=== PATIENT | female | born 1955 | race Caucasian/White ===

== ENCOUNTER 2024-07-20 11:38 | Inpatient (IN) | payer MEDICARE ==
[~2024-07-20] VITALS: Ht 167.6 cm; Wt 58.5 kg
[2024-07-20] VITALS (38 sets, daily range): BP systolic 88–142; BP diastolic 62–87; PULSE 67–94; RESP 15–21; TEMP 36.5–37.2; O2SAT 96–100
[2024-07-20] MEDS ORDERED: NALOXONE HCL 0.4MG/ML 1ML VIAL ONE (11:40)
[2024-07-20] MEDS ORDERED: ETOMIDATE 2MG/ML 10ML VIAL IV ONE ×2 (12:00→13:48)
[2024-07-20] MEDS ORDERED: ROCURONIUM BROMIDE 10MG/ML VIAL 5ML IV ONE (12:00)
[2024-07-20 12:26] LABS: CHLORIDE 106 mEq/L (98-107); POTASSIUM 4.3 mEq/L (3.5-5.1); SODIUM 142 mEq/L (136-145)
[2024-07-20 12:27] LABS: CARBON DIOXIDE 24 mEq/L (21-32)
[2024-07-20 12:32] LABS: CREATININE 0.4 mg/dL (0.6-1.0); GLUCOSE 109 mg/dL (70-105); UREA NITROGEN BLOOD 17 mg/dL (9-23)
[2024-07-20 12:34] LABS: ACETAMINOPHEN < 2 ug/mL (10-30)
[2024-07-20] MEDS: SODIUM CHLORIDE 0.9% 1,000 ML IV ONE (12:45)
[2024-07-20] MEDS: SODIUM CHLORIDE 0.9% (SEPSIS BOLUS) IV ONE (12:45)
[2024-07-20] MEDS: PIPERACILLIN/TAZO 3.375G/50ML 50 ML IV ONE (12:45)
[2024-07-20 12:51] LABS: TROPONIN I HIGH SENSITIVITY < 4 ng/L (3.0-34)
[2024-07-20 12:54] LABS: ETHANOL BLOOD 603 mg/dL (<10)
[2024-07-20] MEDS: PROPOFOL 10MG/ML 100ML 100 ML IV ONE (12:57)
[2024-07-20] MEDS: NALOXONE HCL 0.4MG/ML 1ML VIAL IV PRN (13:16)
[2024-07-20 13:21] LABS: BG BASE EXCESS -4.2 mmol/L (-2.0-3.0); BG CARBOXYHEMOGLOBIN 1.3 % (0.5-1.5); BG DEOXYHEMOGLOBIN 0.2 % (0.0-5.0); BG FRACTION INSPIRED OXYGEN 100; BG HCO3 ACT 21.1 mmol/L (21.0-28.0); BG METHEMOGLOBIN 0.3 % (0.5-1.5); BG OXYGEN SATURATION 99.8 % (94.0-98.0); BG OXYHEMOGLOBIN 98.2 % (94.0-98.0); BG PCO2 39.5 mmHg (32.0-45.0); BG PH 7.346 (7.350-7.450); BG PO2 306.2 mmHg (83.0-108.0); BG SAMPLE SITE RIGHT BRACHIAL; BG TOTAL HEMOGLOBIN 12.3 g/dL (12.0-16.0); BG VENT MODE VENT - AC
[2024-07-20] MEDS: NOREPINEPHRINE 8MG/250ML PMX 250 ML IV ONE (13:27)
[2024-07-20] MEDS: VANCOMYCIN 1G PREMIX 200 ML IV ONE (13:44)
[2024-07-20 14:05] LABS: BASOPHILS % 0.3 % (0.0-2.0); DIFFERENTIAL COMMENT 0; HEMATOCRIT. 34.7 % (36.0-48.0); HEMOGLOBIN. 11.6 g/dL (12.0-16.0); LYMPHOCYTES % 18.9 % (20.0-50.0); MEAN CORPUSCULAR HGB CONC 33.3 g/dL (31.0-37.0); MEAN CORPUSCULAR VOLUME 105.2 fL (81.0-99.0); MONOCYTES % 4.9 % (2.0-8.0); NEUTROPHILS % 74.9 % (40.0-76.0); PLATELET 187 x1000/uL (130-400); RED CELL DISTRIBUTION WIDTH 14.9 % (11.6-14.6); WHITE BLOOD COUNT 8.3 x1000/uL (4.5-11.0)
[2024-07-20 14:15] LABS: PROTHROMBIN TIME 10.8 sec (9.6-11.0)
[2024-07-20 14:41] LABS: LACTIC ACID 2.5 mmol/L (0.4-2.0)
[2024-07-20] MEDS ORDERED: MORPHINE SULFATE 2 MG/ML INJ (NOT FOR IM USE) IV PRN (14:45)
[2024-07-20] MEDS ORDERED: MAGNESIUM/ALUMINUM HYDROXIDE/SIMETHICONE 30ML UDC PO PRN (14:45)
[2024-07-20] MEDS ORDERED: CLONIDINE 0.1MG TABLET PO PRN (14:45)
[2024-07-20] MEDS ORDERED: NOREPINEPHRINE 8MG/250ML PMX 250 ML IV PRN (14:45)
[2024-07-20] MEDS ORDERED: NA PHOS,M-B/NA PHOS,DI-BA ENEMA 118ML PR PRN (14:45)
[2024-07-20] MEDS ORDERED: IPRATROPIUM/ALBUTEROL 0.5-3(2.5)MG/3ML NEB HHN PRN (14:45)
[2024-07-20] MEDS ORDERED: GUAIFENESIN 200MG/10ML SUGAR FREE UDC PO PRN (14:45)
[2024-07-20] MEDS ORDERED: DEXTROSE 50% WATER 50ML SYRINGE IV PRN (14:45)
[2024-07-20] MEDS ORDERED: DOCUSATE SODIUM 100MG CAPSULE PO PRN (14:45)
[2024-07-20] MEDS: BLOOD SUGAR DIAGNOSTIC STRIP TEST SCH (15:00)
[2024-07-20] MEDS ORDERED: MVI, ADULT NO.1 10 ML, FOLIC ACID 1 MG, THIAMINE HCL 100 MG in SODIUM CHLORIDE 0.9% 1,0... IV NR (15:00)
[2024-07-20] MEDS: INSULIN LISPRO 100 UNITS/ML SUBCUT SCH (16:00)
[2024-07-20] MEDS: NOREPINEPHRINE 8MG/250ML PMX 250 ML IV PRN (17:06)
[2024-07-20 17:10] LABS: CLARITY URINE CLEAR (CLEAR); COLOR URINE YELLOW (YELLOW); GLUCOSE URINE NEGATIVE (NEGATIVE); KETONES URINE NEGATIVE (NEGATIVE); LEUKOCYTE ESTERASE URINE NEGATIVE (NEGATIVE); NITRITE URINE NEGATIVE (NEGATIVE); OCCULT BLOOD URINE NEGATIVE (NEGATIVE); PH URINE 5.5 (4.5-8.0); PROTEIN URINE NEGATIVE (NEGATIVE); SPECIFIC GRAVITY URINE 1.007 (1.005-1.030); UROBILINOGEN URINE 0.2 E.U./dL (0.2-1.0)
[2024-07-20 17:19] LABS: *AMPHETAMINES SCREEN URINE NEGATIVE (NEGATIVE); *BENZODIAZEPINES SCREEN URINE PRESUMPTIVE POSITIVE (NEGATIVE)
[2024-07-20 17:20] LABS: *BARBITURATES SCREEN URINE NEGATIVE (NEGATIVE); *COCAINE SCREEN URINE NEGATIVE (NEGATIVE); CANNABINOID URINE SCREEN NEGATIVE (NEGATIVE); ECSTASY MDMA SCREEN URINE CONF.TEST INDICATED (NEGATIVE); METHADONE URINE SCREEN NEGATIVE (NEGATIVE); OPIATES URINE SCREEN NEGATIVE (NEGATIVE); PHENCYCLIDINE URINE SCREEN NEGATIVE (NEGATIVE)
[2024-07-20 17:44] LABS: IRON 64 ug/dL (50-170)
[2024-07-20 17:45] LABS: TRIGLYCERIDE 246 mg/dL (0-150); TROPONIN I HIGH SENSITIVITY 4 ng/L (3.0-34)
[2024-07-20 17:46] LABS: LDL CHOLESTEROL 47 mg/dL (5-100)
[2024-07-20 17:47] LABS: ALBUMIN 3.5 g/dL (3.2-4.8); CHOLESTEROL 189 mg/dL (<200); HDL CHOLESTEROL 110 mg/dL (>65); PHOSPHORUS 3.3 mg/dL (2.5-4.9); TOTAL IRON BINDING CAPACITY 280 ug/dl (250-425)
[2024-07-20 17:49] LABS: T4 FREE 0.91 ng/dL (0.89-1.76); THYROID STIMULATING HORMONE 1.21 uIU/mL (0.55-4.78)
[2024-07-20 17:58] LABS: FERRITIN 61 ng/mL (10-291); FOLIC ACID (FOLATE) SERUM 11.58 ng/mL (>5.38)
[2024-07-20 17:59] LABS: VITAMIN B12 SERUM 399 pg/mL (211-911)
[2024-07-20] MEDS: DEXT 5%/0.9% NACL 1,000 ML IV SCH (18:00)
[2024-07-20] MEDS: FOLIC ACID 1 MG, THIAMINE HCL 100 MG, MVI, ADULT NO.1 10 ML in DEXTROSE 5% WATER 1,000 ML IV SCH (18:25)
[2024-07-20] MEDS: MAGNESIUM 2 G PREMIX 50 ML IV NR (19:53)
[2024-07-20] MEDS: PANTOPRAZOLE SODIUM 40 MG/VIAL IV SCH (22:46)
[2024-07-21] VITALS (100 sets, daily range): BP systolic 89–173; BP diastolic 56–115; PULSE 48–98; RESP 14–28; TEMP 36.6–38; O2SAT 95–100
[2024-07-21] MEDS ORDERED: DEXT 5%/0.9% NACL 1,000 ML IV SCH (01:00)
[2024-07-21] MEDS: LORAZEPAM 2MG/ML UD SYRINGE IV NR (01:47)
[2024-07-21] MEDS: DEXMEDETOMIDINE 400 MCG/100 ML 100 ML IV PRN (01:48)
[2024-07-21] MEDS: PROPOFOL 10MG/ML 100ML 100 ML IV PRN ×2 (01:49→18:53)
[2024-07-21 05:36] LABS: BASOPHILS % 0.3 % (0.0-2.0); DIFFERENTIAL COMMENT 0; EOSINOPHILS % 0.4 % (0.0-5.0); HEMATOCRIT. 35.4 % (36.0-48.0); HEMOGLOBIN. 11.8 g/dL (12.0-16.0); LYMPHOCYTES % 17.7 % (20.0-50.0); MEAN CORPUSCULAR HEMOGLOBIN 34.7 pg (28.0-32.0); MEAN CORPUSCULAR HGB CONC 33.4 g/dL (31.0-37.0); MEAN CORPUSCULAR VOLUME 103.9 fL (81.0-99.0); MEAN PLATELET VOLUME 7.8 fl (7.4-10.4); MONOCYTES % 5.2 % (2.0-8.0); NEUTROPHILS % 76.4 % (40.0-76.0); PLATELET 237 x1000/uL (130-400); RED CELL DISTRIBUTION WIDTH 15.6 % (11.6-14.6); WHITE BLOOD COUNT 9.5 x1000/uL (4.5-11.0)
[2024-07-21 06:08] LABS: CHLORIDE 114 mEq/L (98-107); POTASSIUM 3.4 mEq/L (3.5-5.1); SODIUM 147 mEq/L (136-145)
[2024-07-21 06:09] LABS: CALCIUM 7.3 mg/dL (8.7-10.4); CARBON DIOXIDE 22 mEq/L (21-32)
[2024-07-21 06:14] LABS: CREATININE 0.4 mg/dL (0.6-1.0); GLUCOSE 116 mg/dL (70-105); UREA NITROGEN BLOOD 14 mg/dL (9-23)
[2024-07-21 06:15] LABS: ALBUMIN 3.3 g/dL (3.2-4.8)
[2024-07-21] MEDS ORDERED: NALOXONE HCL 0.4MG/ML VIAL IV PRN (06:15)
[2024-07-21 06:16] LABS: ALANINE AMINOTRANSFERASE 45 IU/L (10-49); ASPARTATE AMINOTRANSFERASE 59 IU/L (<34); BILIRUBIN TOTAL 0.2 mg/dL (0.1-1.0); CREATINE KINASE 85 IU/L (34-145); PHOSPHORUS 2.6 mg/dL (2.5-4.9); PROTEIN TOTAL 5.2 g/dL (6.0-8.3)
[2024-07-21 06:28] LABS: TROPONIN I HIGH SENSITIVITY < 4 ng/L (3.0-34)
[2024-07-21] MEDS: KCL 20MEQ/100ML PREMIX 100 ML IV NR ×2 (08:27→17:30)
[2024-07-21] MEDS: ENOXAPARIN 40MG/0.4ML SYR SUBCUT SCH (08:28)
[2024-07-21 09:05] LABS: BG BASE EXCESS -6.7 mmol/L (-2.0-3.0); BG CARBOXYHEMOGLOBIN 0.4 % (0.5-1.5); BG FRACTION INSPIRED OXYGEN 35; BG METHEMOGLOBIN 0.3 % (0.5-1.5); BG OXYHEMOGLOBIN 97.3 % (94.0-98.0); BG PCO2 33.4 mmHg (32.0-45.0); BG PH 7.349 (7.350-7.450); BG PO2 108.7 mmHg (83.0-108.0); BG SAMPLE SITE RIGHT RADIAL; BG TOTAL HEMOGLOBIN 12.3 g/dL (12.0-16.0); BG TOTAL RESPIRATORY RATE 20 b/min; BG VENT MODE VENT - AC
[2024-07-21] MEDS: THIAMINE HCL 100MG TABLET PO SCH (10:16)
[2024-07-21] MEDS: ACETAMINOPHEN 650MG/20.3ML UDC PO PRN (12:35)
[2024-07-21 14:38] LABS: ALANINE AMINOTRANSFERASE 46 IU/L (10-49); ALBUMIN 3.2 g/dL (3.2-4.8); ASPARTATE AMINOTRANSFERASE 68 IU/L (<34); BILIRUBIN DIRECT < 0.1 mg/dL (<=3.0); BILIRUBIN TOTAL 0.2 mg/dL (0.1-1.0)
[2024-07-21 14:39] LABS: PROTEIN TOTAL 5.2 g/dL (6.0-8.3)
[2024-07-21] MEDS ORDERED: FOLIC ACID 1 MG, THIAMINE HCL 100 MG, MVI, ADULT NO.1 10 ML in DEXTROSE 5% WATER 1,000 ML IV SCH (15:00)
[2024-07-21 20:06] LABS: AMMONIA 46 uMol/L (<32)
[2024-07-21] MEDS: FENTANYL 2500MCG/250ML PMX 250 ML IV PRN (20:31)
[2024-07-22] VITALS (105 sets, daily range): BP systolic 89–151; BP diastolic 44–129; PULSE 53–85; RESP 8–31; TEMP 36.4–36.7; O2SAT 85–100
[2024-07-22 06:28] LABS: HEMOGLOBIN 10.4 g/dL (12.0-16.0); MEAN CORPUSCULAR HEMOGLOBIN 35.3 pg (28.0-32.0); MEAN CORPUSCULAR HGB CONC 33.7 g/dL (31.0-37.0); MEAN CORPUSCULAR VOLUME 104.8 fL (81.0-99.0); PLATELET 149 x1000/uL (130-400); RED BLOOD CELL COUNT 2.96 mill/uL (4.2-5.4); RED CELL DISTRIBUTION WIDTH 15.3 % (11.6-14.6); WHITE BLOOD COUNT 7.7 x1000/uL (4.5-11.0)
[2024-07-22 06:40] LABS: CARBON DIOXIDE 27 mEq/L (21-32); CHLORIDE 114 mEq/L (98-107); POTASSIUM 3.4 mEq/L (3.5-5.1); SODIUM 147 mEq/L (136-145)
[2024-07-22 06:46] LABS: CREATININE 0.4 mg/dL (0.6-1.0); GLUCOSE 84 mg/dL (70-105); TRIGLYCERIDE 59 mg/dL (0-150); UREA NITROGEN BLOOD 15 mg/dL (9-23)
[2024-07-22 06:48] LABS: PHOSPHORUS 1.4 mg/dL (2.5-4.9)
[2024-07-22 09:17] LABS: BG BASE EXCESS 1.1 mmol/L (-2.0-3.0); BG CARBOXYHEMOGLOBIN 0.3 % (0.5-1.5); BG DEOXYHEMOGLOBIN 1.9 % (0.0-5.0); BG FRACTION INSPIRED OXYGEN 35; BG HCO3 ACT 26.1 mmol/L (21.0-28.0); BG METHEMOGLOBIN 0.3 % (0.5-1.5); BG OXYGEN SATURATION 98.1 % (94.0-98.0); BG OXYHEMOGLOBIN 97.5 % (94.0-98.0); BG PCO2 43.3 mmHg (32.0-45.0); BG PH 7.398 (7.350-7.450); BG PO2 99.2 mmHg (83.0-108.0); BG SAMPLE SITE LEFT BRACHIAL; BG VENT MODE VENT - AC
[2024-07-22] MEDS: POTASSIUM PHOSPHATE 30 MMOL in DEXT 5% WATER 490 ML IV NR (10:50)
[2024-07-22] MEDS: LORAZEPAM 2MG/ML UD SYRINGE IV NR (13:21)
[2024-07-22 13:38] LABS: BG BASE EXCESS 0.2 mmol/L (-2.0-3.0); BG CARBOXYHEMOGLOBIN 0.2 % (0.5-1.5); BG DEOXYHEMOGLOBIN 1.9 % (0.0-5.0); BG FRACTION INSPIRED OXYGEN 35; BG HCO3 ACT 24.9 mmol/L (21.0-28.0); BG METHEMOGLOBIN 0.3 % (0.5-1.5); BG OXYGEN SATURATION 98.1 % (94.0-98.0); BG OXYHEMOGLOBIN 97.6 % (94.0-98.0); BG PCO2 40.9 mmHg (32.0-45.0); BG PH 7.403 (7.350-7.450); BG PO2 100.2 mmHg (83.0-108.0); BG SAMPLE SITE LEFT RADIAL; BG TOTAL HEMOGLOBIN 11.7 g/dL (12.0-16.0); BG TOTAL RESPIRATORY RATE 34 b/min; BG VENT MODE VENT - SIMV
[2024-07-22] MEDS: DEXMEDETOMIDINE 400 MCG/100 ML 100 ML IV PRN (13:57)
[2024-07-22 16:55] LABS: BG BASE EXCESS 1.6 mmol/L (-2.0-3.0); BG CARBOXYHEMOGLOBIN 0.9 % (0.5-1.5); BG DEOXYHEMOGLOBIN 5.1 % (0.0-5.0); BG FRACTION INSPIRED OXYGEN 35; BG HCO3 ACT 26.9 mmol/L (21.0-28.0); BG METHEMOGLOBIN 0.3 % (0.5-1.5); BG OXYGEN SATURATION 94.8 % (94.0-98.0); BG OXYHEMOGLOBIN 93.7 % (94.0-98.0); BG PCO2 45.5 mmHg (32.0-45.0); BG SAMPLE SITE LEFT BRACHIAL; BG TOTAL HEMOGLOBIN 11.9 g/dL (12.0-16.0); BG VENT MODE VENT - CPAP
[2024-07-22] MEDS: RACEPINEPHRINE 2.25% 0.5ML NEB VIAL HHN ONE (17:38)
[2024-07-22] MEDS: IPRATROPIUM/ALBUTEROL 0.5-3(2.5)MG/3ML NEB HHN PRN (17:38)
[2024-07-22] MEDS: METHYLPREDNISOLONE SOD SUCC 40MG/ML (ACT-O-VIAL) IV NR (17:51)
[2024-07-22] MEDS: RACEPINEPHRINE 2.25% 0.5ML NEB VIAL HHN NR (21:00)
[2024-07-23] VITALS (45 sets, daily range): BP systolic 99–164; BP diastolic 69–122; PULSE 71–94; RESP 5–28; TEMP 36.2–37; O2SAT 90–100
[2024-07-23 06:07] LABS: HEMATOCRIT 36.2 % (36.0-48.0); HEMOGLOBIN 11.9 g/dL (12.0-16.0); MEAN CORPUSCULAR HEMOGLOBIN 34.4 pg (28.0-32.0); MEAN CORPUSCULAR HGB CONC 32.8 g/dL (31.0-37.0); MEAN CORPUSCULAR VOLUME 104.9 fL (81.0-99.0); PLATELET 191 x1000/uL (130-400); RED BLOOD CELL COUNT 3.45 mill/uL (4.2-5.4); RED CELL DISTRIBUTION WIDTH 14.8 % (11.6-14.6); WHITE BLOOD COUNT 7.4 x1000/uL (4.5-11.0)
[2024-07-23 06:15] LABS: CHLORIDE 106 mEq/L (98-107); POTASSIUM 3.6 mEq/L (3.5-5.1); SODIUM 140 mEq/L (136-145)
[2024-07-23 06:16] LABS: CALCIUM 8.4 mg/dL (8.7-10.4); CARBON DIOXIDE 26 mEq/L (21-32)
[2024-07-23 06:21] LABS: CREATININE 0.4 mg/dL (0.6-1.0); GLUCOSE 165 mg/dL (70-105); UREA NITROGEN BLOOD 8 mg/dL (9-23)
[2024-07-23 06:23] LABS: PHOSPHORUS 2.5 mg/dL (2.5-4.9)
[2024-07-23] MEDS: ONDANSETRON HCL 4MG/2ML INJ IV PRN (15:25)
[2024-07-23] MEDS: LORAZEPAM 2MG/ML UD SYRINGE IV PRN (19:26)
[2024-07-24] VITALS: BP 160/92; PULSE 85; RESP 16; TEMP 36.5; O2SAT 95
[2024-07-24 04:00] VITALS: BP 139/66; PULSE 66; RESP 16; TEMP 37.2; O2SAT 99
[2024-07-24] MEDS: BLOOD SUGAR DIAGNOSTIC STRIP TEST SCH (06:58)
[2024-07-24] MEDS: INSULIN LISPRO 100 UNITS/ML SUBCUT SCH (07:20)
[2024-07-24 08:00] VITALS: BP 159/85; PULSE 84; RESP 18; TEMP 36.1; O2SAT 97
[2024-07-24] MEDS ORDERED: THIA100T72 PO (08:50)
[2024-07-24 10:28] VITALS: BP 159/85; PULSE 84; TEMP 96.9; O2SAT 97
== END 2024-07-24 10:48 | disposition home or self-care (01) | DRG 91 ==
LOC: ER 11:38 → EDBEDREQ 14:17 → CVICU 16:10 → 6EST 07-23 12:32
PROVIDERS: ADMIT Hospitalist; ATTEND Hospitalist
PROC: 5A1945Z Respiratory Ventilation, 24-96 Consecutive Hours (ICD-10-PCS; principal; 2024-07-20)
PROC: 0BH17EZ Insertion of Endotracheal Airway into Trachea, Via Natural or Artificial Opening (ICD-10-PCS; 2024-07-20)
DX: G92.8 Other toxic encephalopathy (principal); J96.01 Acute respiratory failure with hypoxia; E87.0 Hyperosmolality and hypernatremia; T50.995A Adverse effect of other drugs, medicaments and biological substances, initial encounter; F19.920 Other psychoactive substance use, unspecified with intoxication, uncomplicated; F10.229 Alcohol dependence with intoxication, unspecified; Y90.8 Blood alcohol level of 240 mg/100 ml or more; F17.210 Nicotine dependence, cigarettes, uncomplicated; R33.9 Retention of urine, unspecified; D53.9 Nutritional anemia, unspecified; E87.6 Hypokalemia; E83.39 Other disorders of phosphorus metabolism; Y92.89 Other specified places as the place of occurrence of the external cause
CPT/HCPCS: 31500; 36415; 36600; 71045; 80048; 80053; 80061; 80076; 80305; 80307; 80320; 80329; 81003; 82040; 82140; 82375; 82550; 82607; 82728; 82746; 82805; 82962; 83036; 83540; 83550; 83605; 83735; 84100; 84145; 84439; 84443; 84478; 84484; 85025; 85027; 85044; 87070; 93005; 93970; 94002; 94003; 94070; 94640; 94664; 98960; 99291; A4606; J1650; J1815; J2060; J2310; J2405; J2470; J2543; J2704; J2919; J3010; J3370; J3411; J3475; J3480; J3490; J7030; J7042; J7060; J7070; G0480